=== PATIENT | male | born 1970 | race Caucasian/White ===

== ENCOUNTER 2020-03-31 16:43 | Observation (INO) | payer OTHER ==
[~2020-03-31] VITALS: Ht 172.7 cm; Wt 86.2 kg
[2020-03-31 17:35] LABS: HEMOGLOBIN 14.8 gm/dl (14.0-17.5); RED BLOOD COUNT 4.7 M/UL (4.20-5.50); WHITE BLOOD COUNT 6.7 K/UL (4.5-11.0)
[2020-03-31 17:52] LABS: BUN/CREATININE RATIO 25 (0-10)
[2020-03-31] MEDS ORDERED: REMERON30 MG PO (23:32)
[2020-03-31] MEDS ORDERED: NORVASC10 MG PO (23:33)
[2020-03-31] MEDS ORDERED: ZESTRIL 40 MG T40 MG PO (23:33)
[2020-03-31] MEDS ORDERED: SUBOXONE 8 MG-1 EACH SL (23:33)
[2020-03-31] MEDS ORDERED: SEROQUEL50 MG PO (23:35)
[2020-03-31] MEDS ORDERED: SEROQUEL100 MG PO (23:35)
[2020-04-02 06:44] LABS: HEMOGLOBIN 14.9 gm/dl (14.0-17.5); RED BLOOD COUNT 4.78 M/UL (4.20-5.50); WHITE BLOOD COUNT 4.6 K/UL (4.5-11.0)
[2020-04-02 07:23] LABS: BUN/CREATININE RATIO 29 (0-10)
[2020-04-02] MEDS ORDERED: COMBIVENT RESPIM4 GM INH (11:29)
[2020-04-02] MEDS ORDERED: HYDRALAZINE HCL25 MG PO (11:29)
[2020-04-02] MEDS ORDERED: NITROSTAT 0.40.4 MG SL (11:29)
== END 2020-04-02 18:42 | disposition other institution (70) ==
LOC: ER1 16:43 → MED SURG 4 23:07 → CDU 23:07 → MED SURG 4 04-01 01:09
PROVIDERS: Emergency Medicine; Internal Medicine; ADMIT Internal Medicine
DX: I10 Essential (primary) hypertension (principal); R07.89 Other chest pain; U07.1 COVID-19; K74.60 Unspecified cirrhosis of liver; F17.210 Nicotine dependence, cigarettes, uncomplicated; F15.11 Other stimulant abuse, in remission; F10.11 Alcohol abuse, in remission; Z86.19 Personal history of other infectious and parasitic diseases; Z79.899 Other long term (current) drug therapy
CPT/HCPCS: 36415; 71045; 80048; 80053; 80061; 82550; 82553; 83036; 83874; 84484; 85025; 85027; 85379; 85610; 85730; 93005; 96372; 99285; G0378; J1650; U0002

== ENCOUNTER → 2020-06-24 | Outpatient (CLI) | payer OTHER ==
[~2020-06-24] MED LIST: COMBIVENT RESPIM4 GM INH; HYDRALAZINE HCL25 MG PO; MEDROL DOSEPAK 24 MG PO; NITROSTAT 0.40.4 MG SL; NORVASC10 MG PO; REMERON30 MG PO; SEROQUEL100 MG PO; SEROQUEL50 MG PO; SUBOXONE 8 MG-1 EACH SL; VOLTAREN ARTHRI20 GM TP; ZESTRIL 40 MG T40 MG PO
== END ==
LOC: RAD 09:33
DX: R76.11 Nonspecific reaction to tuberculin skin test without active tuberculosis (principal)
CPT/HCPCS: 71046

== ENCOUNTER 2020-08-02 11:11 | Emergency (ER) | payer OTHER ==
[~2020-08-02 11:11] MED LIST changes: -MEDROL DOSEPAK 24 MG PO; -VOLTAREN ARTHRI20 GM TP
[2020-08-02] MEDS ORDERED: MEDROL DOSEPAK 24 MG PO (14:02)
[2020-08-02] MEDS ORDERED: VOLTAREN ARTHRI20 GM TP (14:03)
== END 2020-08-02 14:13 | disposition home or self-care (01) ==
LOC: ER1 11:11
DX: M25.462 Effusion, left knee (principal); M25.461 Effusion, right knee; I10 Essential (primary) hypertension; F17.210 Nicotine dependence, cigarettes, uncomplicated; Z79.899 Other long term (current) drug therapy
CPT/HCPCS: 73562; 96372; 99283; J1885; J2360

== ENCOUNTER 2021-05-22 17:00 | Emergency (ER) | payer OTHER ==
[~2021-05-22 17:00] MED LIST changes: +MEDROL DOSEPAK 24 MG PO; +VOLTAREN ARTHRI20 GM TP
[2021-05-22 17:45] LABS: HEMOGLOBIN 15.6 gm/dl (14.0-17.5); RED BLOOD COUNT 4.82 M/UL (4.20-5.50); WHITE BLOOD COUNT 6.5 K/UL (4.5-11.0)
[2021-05-22 18:47] LABS: BUN/CREATININE RATIO 13 (0-10)
== END 2021-05-22 20:33 | disposition left against medical advice (07) ==
LOC: ER1 17:00
PROVIDERS: Nurse Practitioner
DX: F10.10 Alcohol abuse, uncomplicated (principal); F19.10 Other psychoactive substance abuse, uncomplicated; I10 Essential (primary) hypertension; F17.200 Nicotine dependence, unspecified, uncomplicated
CPT/HCPCS: 80053; 80307; 85025; 99283; G0480

== ENCOUNTER 2021-06-11 09:24 | Emergency (ER) | payer OTHER ==
[2021-06-11 11:33] LABS: HEMOGLOBIN 15.1 gm/dl (14.0-17.5); RED BLOOD COUNT 4.73 M/UL (4.20-5.50); WHITE BLOOD COUNT 4.7 K/UL (4.5-11.0)
[2021-06-11 11:52] LABS: BUN/CREATININE RATIO 20 (0-10)
[2021-06-11] MEDS ORDERED: COLACE 100MG C100 MG PO (12:07)
== END 2021-06-11 12:54 | disposition home or self-care (01) ==
LOC: ER1 09:24
PROVIDERS: Physician Assistant
DX: K62.5 Hemorrhage of anus and rectum (principal); K59.00 Constipation, unspecified; I12.9 Hypertensive chronic kidney disease with stage 1 through stage 4 chronic kidney disease, or unspecified chronic kidney disease; N18.9 Chronic kidney disease, unspecified; J44.9 Chronic obstructive pulmonary disease, unspecified; F17.210 Nicotine dependence, cigarettes, uncomplicated
CPT/HCPCS: 80053; 85025; 85610; 99283